=== PATIENT | female | born 1965 | race Caucasian/White ===

== ENCOUNTER 2022-08-20 07:37 | Outpatient (CLI) | payer BC | END 2022-08-20 07:38 | disposition home or self-care (01) | LOC: CSHULT 07:37 | PROVIDERS: ATTEND Internal Medicine Gastroenterology | DX: K62.5 Hemorrhage of anus and rectum (principal); R89.0 Abnormal level of enzymes in specimens from other organs, systems and tissues; R74.01 Elevation of levels of liver transaminase levels; K82.9 Disease of gallbladder, unspecified; K76.9 Liver disease, unspecified | CPT/HCPCS: 76705 ==

== ENCOUNTER 2025-01-06 17:25 | Emergency (ER) | payer BC ==
[~2025-01-06 17:25] MED LIST: Iopamidol 300 61% 100 ML VIAL FS ONE
[2025-01-06 18:31] LABS: #Basophils 0.04 10x3/uL (0.0-0.2); #Eosinophils 0.18 10x3/uL (0.0-0.5); #Monocytes 0.43 10x3/uL (0.0-1.1); #Neutrophils 5.64 10x3/uL (1.5-8.4); %Basophils 0.5 % (0.0-2.0); %Eosinophils 2.4 % (0.0-6.0); %Lymphocytes 16.6 % (18.0-47.0); %Monocytes 5.7 % (0.0-10.0); %Neutrophils 74.5 % (40.0-75.0); Hematocrit 37.0 % (34.9-44.5); Hemoglobin 12.6 g/dL (12.0-15.5); Mean Corpuscular Hemoglobin 30.8 pg (27.0-33.0); Mean Corpuscular Volume 90.5 fL (81.6-98.3); Platelet Count 180 10x3/uL (150-450); Red Blood Cell (RBC) Count 4.09 10x6/uL (3.90-5.03); White Blood Cell (WBC) Count 7.57 10x3/uL (3.5-10.5)
[2025-01-06] MEDS ORDERED: Ondansetron PF 4 MG/2 ML Vial ONE (18:48)
[2025-01-06] MEDS ORDERED: Pantoprazole 40 MG VIAL ONE (18:48)
[2025-01-06 18:54] LABS: ALT (SGPT) 33 U/L (Less than 34); AST (SGOT) 33 U/L (11-34); Albumin 4.4 g/dL (3.1-4.5); Alkaline Phosphatase 67 U/L (40-110); Anion Gap 11 mmol/L (10-20); BUN (Urea Nitrogen) 11 mg/dL (9.8-20.1); Bilirubin, Total 0.9 mg/dL (0.3-1.2); Calc. Creatinine Clearance 0 mL/min (70-130); Calcium 9.3 mg/dL (7.8-10.44); Carbon Dioxide 27 mmol/L (22-29); Chloride 106 mmol/L (98-107); Globulin 2.7 g/dL (2.4-3.5); Glucose 102 mg/dL (70-105); Lipase 25 U/L (8-78); Potassium 4.0 mmol/L (3.5-5.1); Sodium 140 mmol/L (136-145)
[2025-01-06 18:57] LABS: Troponin I Less than 0.010 ng/mL (< 0.028)
[2025-01-06 18:58] LABS: INR-International Normal Ratio 1.0; PTT 23.7 sec (22.0-33.0); Prothrombin Time 10.7 sec (9.5-12.1)
[2025-01-06 21:09] LABS: #Basophils 0.04 10x3/uL (0.0-0.2); #Eosinophils 0.17 10x3/uL (0.0-0.5); #Monocytes 0.51 10x3/uL (0.0-1.1); #Neutrophils 6.34 10x3/uL (1.5-8.4); %Basophils 0.5 % (0.0-2.0); %Eosinophils 2.0 % (0.0-6.0); %Lymphocytes 17.1 % (18.0-47.0); %Monocytes 6.0 % (0.0-10.0); %Neutrophils 74.3 % (40.0-75.0); Hematocrit 35.2 % (34.9-44.5); Hemoglobin 11.9 g/dL (12.0-15.5); Mean Corpuscular Hemoglobin 30.5 pg (27.0-33.0); Mean Corpuscular Volume 90.3 fL (81.6-98.3); Platelet Count 176 10x3/uL (150-450); Red Blood Cell (RBC) Count 3.90 10x6/uL (3.90-5.03); White Blood Cell (WBC) Count 8.53 10x3/uL (3.5-10.5)
[2025-01-06 21:15] LABS: Glucose, Urine (Dipstick) Normal (Negative); Leukocyte 500 (Negative); Protein, Urine (Dipstick) 100 mg/dl (Neg-Trace); Specific Gravity, Urine 1.010 (1.005-1.030)
[2025-01-06 21:32] LABS: Bacteria/HPF None Seen HPF (None Seen); CAUTI Indications for Culture Pelvic or flank pain; RBC/HPF 21-50 HPF (0-3); Urine Culture Reflex Yes Yes
== END 2025-01-06 21:15 | disposition home or self-care (01) ==
LOC: CSHERS 17:25
DX: K52.9 Noninfective gastroenteritis and colitis, unspecified (principal)
CPT/HCPCS: 36415; 71045; 74177; 80053; 81001; 83690; 84484; 85025; 85610; 85730; 87086; 93005; 96374; J2405; J2470; Q9967